=== PATIENT | female | born 1990 | race Two or more races ===

== ENCOUNTER 2021-07-20 14:28 | Emergency (ER) | payer MEDICAID ==
[~2021-07-20] VITALS: Ht 165.1 cm; Wt 99.8 kg
[2021-07-20 19:38] VITALS: BP 147/64
== END 2021-07-20 19:49 | disposition home or self-care (01) ==
LOC: ER 14:28
DX: S09.90XA Unspecified injury of head, initial encounter (principal); W22.8XXA Striking against or struck by other objects, initial encounter; Y93.89 Activity, other specified; Y92.89 Other specified places as the place of occurrence of the external cause; Y99.8 Other external cause status

== ENCOUNTER 2024-06-03 20:08 | Emergency (ER) | payer MEDICAID ==
[~2024-06-03] VITALS: Ht 162.6 cm; Wt 103.3 kg
[2024-06-03] MEDS ORDERED: IBU600T PO (22:23)
[2024-06-03] MEDS ORDERED: CYCL-838 PO (22:23)
[2024-06-03 23:10] VITALS: BP 115/62; TEMP 98.3
[2024-06-03 23:12] VITALS: PULSE 69; RESP 16; O2SAT 98
== END 2024-06-03 23:18 | disposition home or self-care (01) ==
LOC: ER 20:08
DX: R07.89 Other chest pain (principal); E66.9 Obesity, unspecified; Z68.39 Body mass index [BMI] 39.0-39.9, adult
CPT/HCPCS: 71045; 81025; 93005

== ENCOUNTER 2024-06-11 15:25 | Inpatient (IN) | payer MEDICAID ==
[~2024-06-11] VITALS: Ht 162.6 cm; Wt 105.6 kg
[~2024-06-11 15:25] MED LIST: CYCL-838 PO; IBU600T PO
[2024-06-11 16:11] LABS: Urine Bacteria None Seen /hpf (None Seen)
[2024-06-11 16:22] LABS: Urine Blood Negative /uL (Negative); Urine Clarity Clear (Clear); Urine Color Yellow (Yellow); Urine Mucus FEW (None Seen); Urine Protein, UAD Negative (Negative); Urine Specific Gravity 1.026 (1.001-1.035); Urine Urobilinogen Normal (Negative); Urine WBC <1 /hpf (0 - 5)
[2024-06-11] MEDS: ceFAZolin 1GM/50ML 50 ML IV ONE (17:08)
[2024-06-11 17:11] LABS: Basophils # (auto) 0.1 10 ^3/uL (0-0.2); Basophils % (auto) 0.7 % (0.0-2.0); Eosinophils # (auto) 0.1 10 ^3/uL (0-0.8); Eosinophils % (auto) 0.8 % (0.0-7.0); Hematocrit 40.7 % (36.0-46.0); Hemoglobin 14.2 g/dL (12.2-16.2); Lymphocytes # (auto) 2.3 10 ^3/uL (0.4-5.4); Mean Corpuscular Hemoglobin 29.5 pg (28.0-32.0); Mean Corpuscular Hgb Conc. 34.9 g/dL (32.0-36.0); Mean Corpuscular Volume 84.5 fL (80.0-100.0); Monocytes # (auto) 0.7 10 ^3/uL (0-1.3); Monocytes % (auto) 6.3 % (0.0-12.0); Neutrophils % (auto) 71.2 % (37.0-80.0); Nucleated Red Blood Cells % 0.1 %; Platelet Count (auto) 352 10^3/uL (140-450); Red Blood Cells 4.82 10^6/uL (4.0-5.20); Red Cell Distribution Width 13.5 % (11.8-14.3); White Blood Cell 11.2 10^3/uL (4.4-10.8)
[2024-06-11 17:33] LABS: Alanine Aminotransferase 22 U/L (7-40); Albumin 4.6 g/dL (3.2-4.8); Alkaline Phosphatase 67 U/L (46-116); Anion Gap 6 (5-15); Aspartate Aminotransferase 13 U/L (13-40); BUN/Creatinine Ratio 11.1 (10.0-20.0); Bilirubin, Total 0.5 mg/dL (0.2-1.0); Blood Urea Nitrogen 10 mg/dL (9-23); Carbon Dioxide 24 mmol/L (20-31); Chloride 106 mmol/L (98-107); Glucose 89 mg/dL (74-106); Potassium 3.6 mmol/L (3.5-5.1); Sodium 136 mmol/L (136-145); Total Protein 7.9 g/dL (5.7-8.2)
--- NOTE | 2024-06-11 18:23 | ED.PDOC ---
History of Present Illness(SKN HPI Comments Old female complaining of right ear pain. Patient states three weeks ago she hit her right ear cartilage pierced. States the piercing became infected. She went to the urgent care 20 days ago and received 1st course of antibiotics. States he was no significant improvement so she went back to the urgent care and received a 2nd course of antibiotics and additional shot of antibiotics. States at this point she has been on antibiotics for 20 days, she went back to the urgent care and they advised to come into the emergency department as they have given her any and all the antibiotics that she can be given outpatient. Patient has had no significant improvement. States her ear still swollen red and tender to the touch. Chief Complaint: Earache Time Seen by MD: 16:00 Primary Care Provider: WERNER History of Present Illness: Nurses Notes Allergies: Coded Allergies: NO KNOWN ALLERGIES (Unverified , 07/20/21) Home Meds Active Scripts Cyclobenzaprine Hcl (CYCLOBENZAPRINE HCL) 7.5 Mg Tab, 7.5 MG PO Q8HP PRN for 3 Days, #9 TAB Prov:LYNNE TURNER MD 06/03/24 Ibuprofen Micronized (MOTRIN TABLET) 600 Mg Tb, 600 MG PO TID PRN, #40 TAB *Black box warning-NSAIDS can increase risk of [place] & hypertension, GI irritation, ulceration, bleed, perferation. Do not use post cardiac surgery. Use short duration/lowest effective dose. Prov:LYNNE TURNER MD 06/03/24 Information Source: Patient Mode of Arrival: Ambulatory Past Medical History PAST MEDICAL HISTORY: Denies Surgical History: Denies all surgeries OIL PIPELINE DISPATCHER History: No Pertinent OIL PIPELINE DISPATCHER History Family History Family History: Reviewed,noncontributory to illness, No family hx of Cancer, No family hx of DM, No family hx of Heart isatu, No family hx of HTN, No family hx ofKidney isatu, No family hx of Liver isatu, No family hx of Lung isatu, No family hx of Stroke Social History Smoker: Non-Smoker Alcohol: Denies ETOH Use Drugs: Denies Drug Use Lives In: Home Constitutional: denies: chills, diaphoresis, fatigue, fever, malaise, sweats, weakness, others EENTM: reports: ear pain; denies: blurred vision, double vision, ear bleeding, ear discharge, ear drainage, ear ringing, eye pain, eye redness, hearing loss, mouth pain, mouth swelling, nasal discharge, nose bleeding, nose congestion, nose pain, photophobia, tearing, throat pain, throat swelling, voice changes, others Respiratory: denies: cough, hemoptysis, orthopnea, SOB at rest, shortness of breath, SOB with excertion, stridor, wheezing, others Cardiovascular: denies: chest pain, dizzy spells, diaphoresis, Dyspnea on exertion, edema, irregular heart beat, left arm pain, lightheadedness, palpitations, PND, syncope, others Gastrointestinal: denies: abdomen distended, abdominal pain, blood streaked bowels, constipated, diarrhea, dysphagia, difficulty swallowing, hematemesis, melena, nausea, poor appetite, poor fluid intake, rectal bleeding, rectal pain, vomiting, others Genitourinary: denies: abnormal vagina bleeding, burning, dyspareunia, dysuria, flank pain, frequency, hematuria, incontinence, pain, , vagina discharge, urgency, others Neurological: denies: dizziness, fainting, headache, left sided numbness, left sided weakness, numbness, paresthesia, pre-existing deficit, right sided numbness, right sided weakness, seizure, speech problems, tingling, tremors, weakness, others Musculoskeletal: denies: back pain, gout, joint pain, joint swelling, muscle pain, muscle stiffness, neck pain, others Integumetry: denies: bruises, change in color, change in hair/nails, dryness, laceration, lesions, lumps, rash, wounds, others Allergic/Immunocompromised: denies: Difficulty Healing, Frequent Infections, Hives, Itching, others Physical Exam General Appearance: No Apparent Distress, Normal HEENT: Normal ENT Inspection, Pharynx Normal, TMs Normal, Other (Erythematous swelling noted to the helix, antihelix, and jose of the right ear, scant discharge noted on the ear. Swelling does extend towards the canal. Canal is clear.) Neck: Full Range of Motion, Non-Tender, Normal, Normal Inspection Respiratory: Chest Non-Tender, Lungs Clear, No Accessory Muscle Use, No Respiratory Distress, Normal Breath Sounds Cardiovascular: No Edema, No JVD, No Murmur, No Gallop, Normal Peripheral Pulses, Regular Rate/Rhythm Breast Exam: Deferred Gastrointestinal: No Organomegaly, Non Tender, No Pulsatile Mass, Normal Bowel Sounds, Soft Genitalia: Deferred Pelvic: Deferred Rectal: Deferred Extremities: No calf tenderness, Normal capillary refill, Normal inspection, Normal range of motion, Non-tender, No pedal edema Musculoskeletal : Apperance: Normal Neurologic: Alert, fire suppression captain II-XII nml as Tested, No Motor Deficits, Normal Affect, Normal Mood, No Sensory Deficits Cerebellar Function: Normal Reflexes: Normal Skin: Dry, Normal Color, Warm Lymphatic: No Adenopathy Was a procedure done? Was a procedure done?: No Differential Diagnosis (INTG) Differential Diagnosis: Abrasion, Cellulitis, Contusion X-Ray, Labs, Meds, VS Vital Signs Date Time Temp Pulse Resp B/P (MAP) Pulse Ox O2 Delivery O2 Flow Rate FiO2 06/11/24 16:43 78 16 99 Room Air 06/11/24 16:43 99.1 78 16 131/74 (93) 99 99.1 06/11/24 15:40 98.5 93 18 131/76 (94) 100 Lab Test 06/11/24 16:46 06/11/24 15:56 Range/Units White Blood Count 11.2 H 4.4-10.8 10^3/uL Red Blood Count 4.82 4.0-5.20 10^6/uL Hemoglobin 14.2 12.2-16.2 g/dL Hematocrit 40.7 36.0-46.0 % Mean Corpuscular Volume 84.5 80.0-100.0 fL Mean Corpuscular Hemoglobin 29.5 28.0-32.0 pg Mean Corpuscular Hemoglobin Concent 34.9 32.0-36.0 g/dL Red Cell Distribution Width 13.5 11.8-14.3 % Platelet Count 352 140-450 10^3/uL Mean Platelet Volume 9.5 6.9-10.8 fL Neutrophils (%) (Auto) 71.2 37.0-80.0 % Lymphocytes (%) (Auto) 21.0 10.0-50.0 % Monocytes (%) (Auto) 6.3 0.0-12.0 % Eosinophils (%) (Auto) 0.8 0.0-7.0 % Basophils (%) (Auto) 0.7 0.0-2.0 % Neutrophils # (Auto) 8.0 1.6-8.6 10 ^3/uL Lymphocytes # (Auto) 2.3 0.4-5.4 10 ^3/uL Monocytes # (Auto) 0.7 0-1.3 10 ^3/uL Eosinophils # (Auto) 0.1 0-0.8 10 ^3/uL Basophils # (Auto) 0.1 0-0.2 10 ^3/uL Nucleated Red Blood Cells 0.1 % Sodium Level 136 136-145 mmol/L Potassium Level 3.6 3.5-5.1 mmol/L Chloride Level 106 98-107 mmol/L Carbon Dioxide Level 24 20-31 mmol/L Anion Gap 6 5-15 Blood Urea Nitrogen 10 9-23 mg/dL Creatinine 0.90 0.550-1.02 mg/dL Glomerular Filtration Rate Calc 86 >90 mL/min BUN/Creatinine Ratio 11.1 10.0-20.0 Serum Glucose 89 74-106 mg/dL Calcium Level 10.0 8.7-10.4 mg/dL Total Bilirubin 0.5 0.2-1.0 mg/dL Aspartate Amino Transferase (AST) 13 13-40 U/L Alanine Aminotransferase (ALT) 22 7-40 U/L Alkaline Phosphatase 67 46-116 U/L Total Protein 7.9 5.7-8.2 g/dL Albumin 4.6 3.2-4.8 g/dL Urine Color Yellow Yellow Urine Clarity Clear Clear Urine pH 5.0 5.0-9.0 Urine Specific [place] 1.026 1.001-1.035 Urine Protein Negative Negative Urine Ketones Negative Negative Urine Blood Negative Negative /uL Urine Nitrite Negative Negative Urine Bilirubin Negative Negative Urine Urobilinogen Normal Negative mg/dL Urine Leukocyte Esterase Negative Negative /uL Urine RBC 1 0 - 4 /hpf Urine WBC <1 0 - 5 /hpf Urine Squamous Epithelial Cells Few <5 /hpf Urine Bacteria None seen None Seen /hpf Urine Mucus Few None Seen Urine Glucose Normal Normal mg/dL Urine Test Negative Negative Current Medications Medications (Trade) Dose Ordered Sig/Pancho Route Start Time Stop Time Status Last Admin Cefazolin Sodium 50 ml @ 100 mls/hr ONCE ONCE IV 06/11/24 16:00 06/11/24 16:29 DC 06/11/24 17:08 X-Ray, Labs, Meds, VS Comment Patient will be admitted for cellulitis of the right ear Recommend IV antibiotics as patient was failed two courses of outpatient antibiotics Time of 1ST Reevaluation: 18:23 Reevaluation 1ST: Improved Patient Education/Counseling: Diagnosis, Treatment, Need For Follow Up Family Education/Counseling: Diagnosis Departure 1 Departure Time of Disposition: 18:22 Impression: Primary Impression: Complication of ear piercing Qualified Codes: S01.331D - Puncture wound without foreign body of right ear, subsequent encounter Additional Impression: Cellulitis Qualified Codes: L03.811 - Cellulitis of head [any part, except face] Disposition: 09 ADMITTED INPATIENT Condition: Fair Discharged With: Self Critical Care Note Critical Care Time?: No Stability Stability form required: No Heart Score Heart Score: Heart Score Response (Comments) Value History N/A 0 EKG N/A 0 Age N/A 0 Risk Factors N/A 0 Troponin N/A 0 Total 0 JERSEY BRAVOP Jun 11, 2024 18:23
[2024-06-11] MEDS ORDERED: DOCUSATE SOD 100 MG CAP PO PRN (19:00)
[2024-06-11] MEDS: SODIUM CHLORIDE 0.9% 1,000 ML IV SCH (19:00)
[2024-06-11] MEDS ORDERED: MORPHINE SULFATE INJ 2 MG/ml SYRG IV PRN (20:15)
[2024-06-11] MEDS ORDERED: NITROGLYCERIN 0.4 MG SL TAB SL PRN (20:15)
--- NOTE | 2024-06-11 20:28 | DVHHP2 ---
History of Present Illness Reason for Visit: Cellulitis of right ear History of Present Illness The patient is 33-year-old female who denies past medical history presented [facility] ED with complaint of right ear pain. Patient states three weeks ago she hit her right ear cartilage pierced and became infected. She initial went to the urgent care 20 days ago and received 1st course of antibiotics with no significant improvement so she went back to the urgent care and received a 2nd course of antibiotics and additional shot of antibiotics with no improvement. She went back to the urgent care and they advised to come to the emergency department for further evaluation. Patient was seen and evaluated in the ED, laboratory data shows WBC 11.2, platelets 352, sodium 136, potassium 3.6, BUN 10, creatinine 0.90, glucose 89. Patient was started on IV antibiotic regimen Ancef, please see medication orders section in the computer. On my assessment, patient denied chest pain, no headache, no dizziness, no shortness of breath, no nausea, no vomiting, no fever, no chills. Patient was admitted for further evaluation and medical management. Past Medical History Denies past medical history Past Surgical History Denies all surgeries Family History Reviewed, noncontributory to the management of this case. Past Social History The patient lives at home, denies smoking, alcohol or illicit drugs abuse. Review of Systems Constitutional: No: Fever, Chills, Sweats, Weakness, Malaise, Other Eyes: No: Pain, Vision change, Conjunctivae inflammation, Eyelid inflammation, Other, Redness ENT: Ear pain; No: Ear discharge, Nose pain, Nose discharge, Nose congestion, Mouth pain, Mouth swelling, Throat pain, Throat swelling, Other Respiratory: No: Cough, Dry, Shortness of breath, SOB with excertion, Wheezing, Hemoptysis, Pleuritic Pain, Sputum, Wheezing, Other Cardiovascular: No: Chest Pain, Palpitations, Orthopnea, Paroxysmal Noc. Dyspnea, Edema, Lt Headedness, Other Gastrointestinal: No: Nausea, Vomiting, Abdominal Pain, Diarrhea, Constipation, Melena, Hematochezia, Other Genitourinary: No Dysuria, No Frequency, No Incontinence, No Hematuria, No Retention, No Other Musculoskeletal: No: other, neck pain, shoulder pain, arm pain, back pain, hand pain, leg pain, foot pain Skin: No: Rash, Lesions, Jaundice, Bruising, Other Neurological: No: Weakness, Numbness, Incoordination, Change in speech, Confusion, Seizures, Other Allergies: Coded Allergies: NO KNOWN ALLERGIES (Unverified , 07/20/21) Medications Current Medications Medications Dose Ordered Sig/Pancho Route Start Time Stop Time Status Last Admin Dose Admin Cefazolin Sodium 50 ml @ 100 mls/hr Q8HR IV 06/11/24 22:00 Sodium Chloride 1,000 ml @ 60 mls/hr [id number] IV 06/11/24 19:00 Acetaminophen/ Hydrocodone Bitart 1 tab Q4HP PRN PO 06/11/24 19:00 Ondansetron HCl 4 mg Q4HP PRN IV 06/11/24 19:00 Docusate Sodium 100 mg BIDPRN PRN PO 06/11/24 19:00 Acetaminophen 650 mg Q6HP PRN PO 06/11/24 19:00 Morphine Sulfate 2 mg Q4HPRN PRN IV 06/11/24 19:00 Exam Vital Signs Vital Signs Date Time Temp Pulse Resp B/P (MAP) Pulse Ox O2 Delivery O2 Flow Rate FiO2 06/11/24 18:53 78 16 144/53 (83) 99 06/11/24 16:43 Room Air 06/11/24 16:43 99.1 99.1 General Appearance: Alert, Oriented X3, Cooperative, No acute distress HEENT: Atraumatic, PERRLA, EOMI, Mucous membr. moist/pink Respiratory: Clear to auscultation, Normal air movement Cardiovascular: Regular rate, Normal S1, Normal S2, No murmurs Abdominal: Normal bowel sounds, Soft, No tenderness, No hepatospenomegaly, No masses Extremities: No clubbing, No cyanosis, No edema, Normal pulses, No tenderness/swelling Skin: No rashes, No breakdown, No significant lesion Neuro: Normal gait, Normal speech, Strength at 5/5 X4 ext, Normal tone, Sensation intact, Cranial nerves 3-12 NL, Reflexes 2+ Psych/Mental Status: Mental status NL, Mood NL Labs/Xrays Labs Test 06/11/24 16:46 06/11/24 15:56 Range/Units White Blood Count 11.2 H 4.4-10.8 10^3/uL Red Blood Count 4.82 4.0-5.20 10^6/uL Hemoglobin 14.2 12.2-16.2 g/dL Hematocrit 40.7 36.0-46.0 % Mean Corpuscular Volume 84.5 80.0-100.0 fL Mean Corpuscular Hemoglobin 29.5 28.0-32.0 pg Mean Corpuscular Hemoglobin Concent 34.9 32.0-36.0 g/dL Red Cell Distribution Width 13.5 11.8-14.3 % Platelet Count 352 140-450 10^3/uL Mean Platelet Volume 9.5 6.9-10.8 fL Neutrophils (%) (Auto) 71.2 37.0-80.0 % Lymphocytes (%) (Auto) 21.0 10.0-50.0 % Monocytes (%) (Auto) 6.3 0.0-12.0 % Eosinophils (%) (Auto) 0.8 0.0-7.0 % Basophils (%) (Auto) 0.7 0.0-2.0 % Neutrophils # (Auto) 8.0 1.6-8.6 10 ^3/uL Lymphocytes # (Auto) 2.3 0.4-5.4 10 ^3/uL Monocytes # (Auto) 0.7 0-1.3 10 ^3/uL Eosinophils # (Auto) 0.1 0-0.8 10 ^3/uL Basophils # (Auto) 0.1 0-0.2 10 ^3/uL Nucleated Red Blood Cells 0.1 % Sodium Level 136 136-145 mmol/L Potassium Level 3.6 3.5-5.1 mmol/L Chloride Level 106 98-107 mmol/L Carbon Dioxide Level 24 20-31 mmol/L Anion Gap 6 5-15 Blood Urea Nitrogen 10 9-23 mg/dL Creatinine 0.90 0.550-1.02 mg/dL Glomerular Filtration Rate Calc 86 >90 mL/min BUN/Creatinine Ratio 11.1 10.0-20.0 Serum Glucose 89 74-106 mg/dL Calcium Level 10.0 8.7-10.4 mg/dL Total Bilirubin 0.5 0.2-1.0 mg/dL Aspartate Amino Transferase (AST) 13 13-40 U/L Alanine Aminotransferase (ALT) 22 7-40 U/L Alkaline Phosphatase 67 46-116 U/L Total Protein 7.9 5.7-8.2 g/dL Albumin 4.6 3.2-4.8 g/dL Urine Color Yellow Yellow Urine Clarity Clear Clear Urine pH 5.0 5.0-9.0 Urine Specific [place] 1.026 1.001-1.035 Urine Protein Negative Negative Urine Ketones Negative Negative Urine Blood Negative Negative /uL Urine Nitrite Negative Negative Urine Bilirubin Negative Negative Urine Urobilinogen Normal Negative mg/dL Urine Leukocyte Esterase Negative Negative /uL Urine RBC 1 0 - 4 /hpf Urine WBC <1 0 - 5 /hpf Urine Squamous Epithelial Cells Few <5 /hpf Urine Bacteria None seen None Seen /hpf Urine Mucus Few None Seen Urine Glucose Normal Normal mg/dL Urine Test Negative Negative Assessment/Plan Assessment/Plan Complication of ear piercing Cellulitis of right ear Cellulitis of head [any part, except face] Puncture wound without foreign body of right ear, subsequent encounter Plan 1. Admit to Med-Surg unit 2. Breathing treatment 3. Pain control management 4. IV antibiotic management 5. Management of fluids and electrolytes 6. Consultation for hospitalist/wound care 7. Diagnostic test-x-ray 8. DVT prophylaxis on SCDs 9. Repeat labs CBC, CMP in a.m. 10. Home medication reviewed and reconciled 11. Continue with current medical management 12. Treatment plan discussed with patient and RN. Patient verbalized understanding. Plan discussed with: Patient, Other (RN) My Orders Orders - FREDA RIDER DNP Procedure Category Date Status Time Cefazolin 1gm/50ml PHA 06/11/24 In Process (Ancef) 22:00 Allergies NICOLE 06/11/24 In Process 18:51 Code Status CODE 06/11/24 Transmitted 18:51 2 Gm Sodium Diet DIET 06/12/24 Transmitted Breakfast Sodium Chloride 0.9% PHA 06/11/24 In Process 19:00 Oxygen Per Hour RT 06/11/24 Transmitted 18:51 Hydrocodone-Acet PHA 06/11/24 In Process 5/325mg Tab ([place] 19:00 Ondansetron Hcl PHA 06/11/24 In Process (Zofran) 19:00 Docusate Sodium PHA 06/11/24 In Process Capsule (Colace 19:00 Complete Blood Count LAB 06/12/24 Verified 04:00 Comprehensive LAB 06/12/24 Verified Metabolic Panel 04:00 Condition: Serious NICOLE 06/11/24 In Process 18:51 Acetaminophen Tablet PHA 06/11/24 In Process (Tylenol Tablet) 19:00 Bedrest With Bathroom [facility] 06/11/24 In Process Privileg 18:51 Morphine Sulfate [facility] 06/11/24 In Process Injection 19:00 Sequential [facility] 06/11/24 In Process Compression Device Admit ADMIT 06/11/24 Verified 20:10 Nitroglycerin [facility] 06/11/24 Verified Sublingual (Ntrostat 20:15 Morphine Sulfate [facility] 06/11/24 Verified Injection 20:15 Notify Of Changes [facility] 06/11/24 Verified From Base 20:10 Block Engraver For [facility] 06/11/24 Verified 24 Hours 20:10 Emergency Dysrhythmia [facility] 06/11/24 Verified Protocol 20:10 Rhythm Strips Once [facility] 06/11/24 Verified Every Shift 20:10 Oxygen By Nasal 06/11/24 Verified Cannula 20:10 Problem List: (1) Cellulitis of right ear (2) Complication of ear piercing (3) Cellulitis of head [any part, except face] (4) Puncture wound without foreign body of right ear, subsequent encounter Date of Service: Jun 11, 2024 Billing Provider: FREDA RIDER DNP Common Visit Codes: [id number] INP/OBS CARE (HIGH) FREDA RIDER DNP Jun 11, 2024 20:28
[2024-06-11] MEDS: ONDANSETRON HCL 4 MG/2 ML VIAL IV PRN (20:44)
[2024-06-11] MEDS: HYDROcodone-ACET 5/325MG TAB PO PRN (20:44)
[2024-06-11 21:30] VITALS: BP 150/75; PULSE 84; RESP 17; TEMP 98.2; O2SAT 97
[2024-06-11 21:41] VITALS: PULSE 84; RESP 18; O2SAT 97
[2024-06-11 21:42] VITALS: BP 150/75; PULSE 82; TEMP 98.2; O2SAT 97
[2024-06-11] MEDS: ceFAZolin 1GM/50ML 50 ML IV SCH (22:12)
[2024-06-11] MEDS ORDERED: LISI40TA16 PO (22:13)
[2024-06-12] VITALS (8 sets, daily range): BP systolic 109–136; BP diastolic 54–70; PULSE 69–84; RESP 18–19; TEMP 98.1–98.7; O2SAT 97–100
[2024-06-12] MEDS: MORPHINE SULFATE INJ 2 MG/ml SYRG IV PRN (00:58)
[2024-06-12 07:10] LABS: Basophils # (auto) 0.1 10 ^3/uL (0-0.2); Basophils % (auto) 0.7 % (0.0-2.0); Eosinophils # (auto) 0.1 10 ^3/uL (0-0.8); Eosinophils % (auto) 1.2 % (0.0-7.0); Hematocrit 39.7 % (36.0-46.0); Hemoglobin 13.1 g/dL (12.2-16.2); Lymphocytes # (auto) 2.9 10 ^3/uL (0.4-5.4); Lymphocytes % (auto) 25.7 % (10.0-50.0); Mean Corpuscular Hemoglobin 28.6 pg (28.0-32.0); Mean Corpuscular Hgb Conc. 33.1 g/dL (32.0-36.0); Mean Corpuscular Volume 86.4 fL (80.0-100.0); Monocytes # (auto) 0.9 10 ^3/uL (0-1.3); Monocytes % (auto) 7.6 % (0.0-12.0); Neutrophils # (auto) 7.3 10 ^3/uL (1.6-8.6); Neutrophils % (auto) 64.8 % (37.0-80.0); Platelet Count (auto) 336 10^3/uL (140-450); Red Blood Cells 4.59 10^6/uL (4.0-5.20); Red Cell Distribution Width 13.9 % (11.8-14.3); White Blood Cell 11.3 10^3/uL (4.4-10.8)
[2024-06-12 07:31] LABS: Alanine Aminotransferase 18 U/L (7-40); Alkaline Phosphatase 62 U/L (46-116); Anion Gap 8 (5-15); BUN/Creatinine Ratio 9.6 (10.0-20.0); Blood Urea Nitrogen 8 mg/dL (9-23); Calcium 9.8 mg/dL (8.7-10.4); Carbon Dioxide 25 mmol/L (20-31); Chloride 106 mmol/L (98-107); Glucose 91 mg/dL (74-106); Potassium 3.8 mmol/L (3.5-5.1); Sodium 139 mmol/L (136-145)
[2024-06-12 07:32] LABS: Albumin 4.1 g/dL (3.2-4.8); Aspartate Aminotransferase 8 U/L (13-40)
[2024-06-12 07:33] LABS: Bilirubin, Total 0.8 mg/dL (0.2-1.0); Total Protein 7.2 g/dL (5.7-8.2)
[2024-06-12] MEDS: INFLUENZA TRIVALENT 2024-2025 0.5 ML INJ IM ONE (10:00)
--- NOTE | 2024-06-12 12:26 | DVHPN2 ---
Subjective 33-year-old female with no significant past medical history admitted for right outer ear abscess. Patient had a piercing 1 month ago, developed swelling and draining pus, went to urgent Care, received in total clindamycin, cefdinir, penicillin and unknown 1 shot of IM medication. Patient is seen by me during rounds today Does not look like she has in her infection, however slight tenderness post and preauricular possible lymphadenopathy, we will get CT scan to rule out mastoiditis, otoscopic evaluation slight swelling in the inner ear, no erythema, clear tympanic membrane. We will consult surgery for possible outer ear I&D Reviewed: Care Plan, H&P, Labs, Medications, Previous Orders, Radiology Changes from previous H/P or p: No Changes Eyes: No Pain, No Vision change, No Conjunctivae inflammation, No Eyelid inflammation, No Other, No Redness ENT: Ear pain; No Ear discharge, No Nose pain, No Nose discharge, No Nose congestion, No Mouth pain, No Mouth swelling, No Throat pain, No Throat swelling, No Other Cardiovascular: No Chest Pain, No Palpitations, No Orthopnea, No Paroxysmal Noc. Dyspnea, No Edema, No Lt Headedness, No Other Respiratory: No Cough, No Dry, No Shortness of breath, No SOB with excertion, No Wheezing, No Hemoptysis, No Pleuritic Pain, No Sputum, No Other Gastrointestinal: No Nausea, No Vomiting, No Abdominal Pain, No Diarrhea, No Constipation, No Melena, No Hematochezia, No Other Genitourinary: No Dysuria, No Frequency, No Incontinence, No Hematuria, No Retention, No Other Musculoskeletal: No other, No neck pain, No shoulder pain, No arm pain, No back pain, No hand pain, No leg pain, No foot pain Skin: No Rash, No Lesions, No Jaundice, No Bruising, No Other Objective Vitals Vital Signs Date Time Temp Pulse Resp B/P (MAP) Pulse Ox O2 Delivery O2 Flow Rate FiO2 06/12/24 09:00 98.1 82 18 109/54 (72) 99 98.1 06/11/24 21:41 Room Air* 0 21 Intake/Output Intake and Output 06/12/24 07:00 Intake Total 1050 ml Balance 1050 ml Intake Oral 900 ml IV Total 150 ml # Voids 2 Exam Alert, oriented x3 PERRLA No JVD Right outer ear, swollen, erythematous, fluctuating mass on the upper inner pinna, warmth to touch Ear canal slight swelling, trace blood seen, trace ear wax, no erythema Clear tympanic membrane Slight muffled hearing on right ear compared to left Clear breath sounds bilaterally S1-S2 regular rate and rhythm no murmur Abdomen soft nontender, no hepatomegaly Equal strength bilaterally on upper and lower extremities No lower extremity edema Medications Current Medications Medications Dose Ordered Sig/Pancho Route Start Time Stop Time Status Last Admin Dose Admin Cefazolin Sodium 50 ml @ 100 mls/hr Q8HR IV 06/11/24 22:00 06/12/24 05:26 100 MLS/HR Sodium Chloride 1,000 ml @ 60 mls/hr [id number] IV 06/11/24 19:00 06/11/24 22:08 60 MLS/HR Acetaminophen/ Hydrocodone Bitart 1 tab Q4HP PRN PO 06/11/24 19:00 06/12/24 05:25 1 TAB Ondansetron HCl 4 mg Q4HP PRN IV 06/11/24 19:00 06/11/24 20:44 4 MG Docusate Sodium 100 mg BIDPRN PRN PO 06/11/24 19:00 Acetaminophen 650 mg Q6HP PRN PO 06/11/24 19:00 Morphine Sulfate 2 mg Q4HPRN PRN IV 06/11/24 19:00 06/12/24 00:58 2 MG Nitroglycerin 0.4 mg Q5MINP PRN SL 06/11/24 20:15 Morphine Sulfate 2 mg Q30M PRN IV 06/11/24 20:15 Laboratory Results Laboratory Tests 06/12/24 06:00 Chemistry Test 06/11/24 16:46 06/12/24 06:00 Albumin 4.6 g/dL (3.2-4.8) 4.1 g/dL (3.2-4.8) Calcium Level 10.0 mg/dL (8.7-10.4) 9.8 mg/dL (8.7-10.4) Total Protein 7.9 g/dL (5.7-8.2) 7.2 g/dL (5.7-8.2) LFT Test 06/11/24 16:46 06/12/24 06:00 Alanine Aminotransferase (ALT) 22 U/L (7-40) 18 U/L (7-40) Alkaline Phosphatase 67 U/L (46-116) 62 U/L (46-116) Aspartate Amino Transferase (AST) 13 U/L (13-40) 8 U/L (13-40) L Total Bilirubin 0.5 mg/dL (0.2-1.0) 0.8 mg/dL (0.2-1.0) Urinalysis Test 06/11/24 15:56 Urine Color Yellow (Yellow) Urine Clarity Clear (Clear) Urine pH 5.0 (5.0-9.0) Urine Specific [place] 1.026 (1.001-1.035) Urine Protein Negative (Negative) Urine Ketones Negative (Negative) Urine Blood Negative /uL (Negative) Urine Nitrite Negative (Negative) Urine Bilirubin Negative (Negative) Urine Urobilinogen Normal mg/dL (Negative) Urine Leukocyte Esterase Negative /uL (Negative) Urine RBC 1 /hpf (0 - 4) Urine WBC <1 /hpf (0 - 5) Urine Squamous Epithelial Cells Few /hpf (<5) Urine Bacteria None seen /hpf (None Seen) Urine Mucus Few (None Seen) Urine Glucose Normal mg/dL (Normal) Urine Test Negative (Negative) Labs and/or images reviewed: Labs reviewed by me, Image(s) reviewed by me Assessment/Plan Assessment/Plan Right outer ear cellulitis Rule out abscess Rule out mastoiditis Switch antibiotic to clindamycin and ciprofloxacin to cover for Pseudomonas and MRSA Pain management with Tylenol Toradol Consult surgery for possible outer ear I&D CT to rule out mastoiditis Diet regular DVT prophylaxis ambulatory Plan discussed with: Patient My Orders Orders - STANISLAV ROSAS MD Procedure Category Date Status Time Head Contrast Only CT 06/12/24 Logged 12:14 Levofloxacin Levaquin PHA 06/13/24 Verified 10:00 Clindamycin Ivpb PHA 06/12/24 Verified Cleocin 14:00 * Surgical Consult CONS 06/12/24 Verified Date of Service: Jun 12, 2024 Billing Provider: STANISLAV ROSAS MD Common Visit Codes: [id number] INP/OBS CARE(HIGH) STANISLAV ROSAS MD Jun 12, 2024 12:26
[2024-06-12] MEDS ORDERED: levoFLOXacin 250MG 50 ML IV SCH (13:00)
[2024-06-12] MEDS ORDERED: VANCOMYCIN PER PHARMACY 0 MG IV SCH (14:00)
[2024-06-12] MEDS ORDERED: CLINDAMYCIN 600MG IV 50 ML IV SCH (14:00)
[2024-06-12] MEDS: VANCOMYCIN 1.5GM/300ML 300 ML IV ONE (16:23)
[2024-06-12] MEDS: ACETAMINOPHEN 325 MG TAB PO SCH (16:24)
[2024-06-12] MEDS: KETOROLAC TROMETH 30 MG/ML 1ML VIAL IV SCH (16:24)
--- NOTE | 2024-06-12 16:24 | DVH ---
Procedure: CT HEAD CONTRAST ONLY Study Date and Requested Time: 06/12/2024 03:45 PM History: r/o mastoiditis and asbcess yusuf R ear Comparison: None Dose: CTDI: 63.18 mGy DLP: 1392.18 mGycm Technique: Multiplanar images obtained through the brain with intravenous contrast. Findings: Normal brain volume and formation. No hemorrhages, masses, mass effect, midline shift, herniation or cytotoxic edema following a large v ascular territory. No intra-axial or extra-axial fluid collections. No evidence of hydrocephalus. The basal cisterns are patent. The pituitary gland, sella and parasellar regions are unremarkable. The cerebellar tonsils are in nor mal position. The cerebellum is unremarkable. The orbits and globes are unremarkable. Bubbly secretion within left posterior ethmoid air cell. Oth erwise, the paranasal sinuses and mastoids are clear. There are no worrisome calvarial lesions. There is soft tissue edema of the right external ear with questionable 1 x 0.6 cm abscess and more inferio r 0.7 cm possible abscess. Slightly prominent reactive lymph nodes are noted within the right parotid gland. No abnormal intracranial enhancement. Impression: No evidence of acute intracranial abnormality. No abnormal intracranial enhancement. No evidence of mastoiditis. Asymmetric soft tissue edema of the right external ear with questionable 1 x 0.6 cm abscess and more inferior 0.7 cm possible abscess.
[2024-06-12] MEDS: IOHEXOL 300 MG/ML 100ML BOTTLE IJ ONE (16:42)
[2024-06-12] MEDS ORDERED: PIPERACILLIN-TAZOB 3.375GM 100 ML IV SCH (18:00)
[2024-06-12] MEDS: PIPERACILLIN-TAZOB 3.375GM 100 ML IV SCH (21:21)
[2024-06-13] VITALS (7 sets, daily range): BP systolic 115–134; BP diastolic 53–77; PULSE 52–72; RESP 16–18; TEMP 98.2–99.4; O2SAT 97–98
[2024-06-13] MEDS: VANCOMYCIN 1.5GM/300ML 300 ML IV SCH (04:15)
[2024-06-13 07:07] LABS: Basophils # (auto) 0.1 10 ^3/uL (0-0.2); Basophils % (auto) 1.1 % (0.0-2.0); Eosinophils # (auto) 0.2 10 ^3/uL (0-0.8); Eosinophils % (auto) 1.8 % (0.0-7.0); Hematocrit 39.9 % (36.0-46.0); Hemoglobin 13.1 g/dL (12.2-16.2); Lymphocytes % (auto) 26.2 % (10.0-50.0); Mean Corpuscular Hemoglobin 28.4 pg (28.0-32.0); Mean Corpuscular Hgb Conc. 32.8 g/dL (32.0-36.0); Mean Corpuscular Volume 86.6 fL (80.0-100.0); Monocytes # (auto) 0.9 10 ^3/uL (0-1.3); Monocytes % (auto) 8.3 % (0.0-12.0); Neutrophils # (auto) 7.1 10 ^3/uL (1.6-8.6); Neutrophils % (auto) 62.6 % (37.0-80.0); Platelet Count (auto) 325 10^3/uL (140-450); Red Blood Cells 4.61 10^6/uL (4.0-5.20); Red Cell Distribution Width 13.7 % (11.8-14.3); White Blood Cell 11.3 10^3/uL (4.4-10.8)
[2024-06-13] MEDS ORDERED: levoFLOXacin 750MG 150 ML IV SCH (10:00)
--- NOTE | 2024-06-13 15:59 | DVHPN2 ---
Subjective 33-year-old female with no significant past medical history admitted for right outer ear abscess. Patient had a piercing 1 month ago, developed swelling and draining pus, went to urgent Care, received in total clindamycin, cefdinir, penicillin and unknown 1 shot of IM medication. Patient is seen by me during rounds today Pending surgery consult, patient on vanc and Zosyn, improving, drainage seen from ear, swelling improved, pain improved we will continue IV antibiotics for now. Discussed with patient if unable to get treatment from surgery, we will discharge her with antibiotics and for her to follow up with ENT. Reviewed: Care Plan, H&P, Labs, Medications, Previous Orders, Radiology Changes from previous H/P or p: No Changes Eyes: No Pain, No Vision change, No Conjunctivae inflammation, No Eyelid inflammation, No Other, No Redness ENT: Ear pain; No Ear discharge, No Nose pain, No Nose discharge, No Nose congestion, No Mouth pain, No Mouth swelling, No Throat pain, No Throat swelling, No Other Cardiovascular: No Chest Pain, No Palpitations, No Orthopnea, No Paroxysmal Noc. Dyspnea, No Edema, No Lt Headedness, No Other Respiratory: No Cough, No Dry, No Shortness of breath, No SOB with excertion, No Wheezing, No Hemoptysis, No Pleuritic Pain, No Sputum, No Other Gastrointestinal: No Nausea, No Vomiting, No Abdominal Pain, No Diarrhea, No Constipation, No Melena, No Hematochezia, No Other Genitourinary: No Dysuria, No Frequency, No Incontinence, No Hematuria, No Retention, No Other Musculoskeletal: No other, No neck pain, No shoulder pain, No arm pain, No back pain, No hand pain, No leg pain, No foot pain Skin: No Rash, No Lesions, No Jaundice, No Bruising, No Other Objective Vitals Vital Signs Date Time Temp Pulse Resp B/P (MAP) Pulse Ox O2 Delivery O2 Flow Rate FiO2 06/13/24 13:18 98.2 52 17 115/70 (85) 98 98.2 06/13/24 08:15 Room Air* 0 21 Intake/Output Intake and Output 06/13/24 06:59 Intake Total 1650 ml Output Total 350 ml Balance 1300 ml Intake Oral 1250 ml IV Total 400 ml Output Urine Total 350 ml # Voids 2 Exam Alert, oriented x3 PERRLA No JVD Right outer ear, swollen, erythematous, fluctuating mass on the upper inner pinna, warmth to touch Ear canal slight swelling, trace blood seen, trace ear wax, no erythema Clear tympanic membrane Slight muffled hearing on right ear compared to left Clear breath sounds bilaterally S1-S2 regular rate and rhythm no murmur Abdomen soft nontender, no hepatomegaly Equal strength bilaterally on upper and lower extremities No lower extremity edema Medications Current Medications Medications Dose Ordered Sig/Pancho Route Start Time Stop Time Status Last Admin Dose Admin Sodium Chloride 1,000 ml @ 60 mls/hr [id number] IV 06/11/24 19:00 06/12/24 21:14 60 MLS/HR Acetaminophen 650 mg Q6HP PRN PO 06/11/24 19:00 Levofloxacin/ Dextrose 150 ml @ 100 mls/hr DAILY IV 06/13/24 10:00 Cancel Vancomycin HCl 0 ml @ 0 mls/hr UD IV 06/12/24 14:00 Acetaminophen 650 mg Q8HR PO 06/12/24 14:00 06/13/24 13:33 650 MG Ketorolac Tromethamine 30 mg Q12HR IV 06/12/24 14:00 06/15/24 13:59 06/13/24 10:53 30 MG Vancomycin HCl 300 ml @ 200 mls/hr Q12H IV 06/13/24 04:00 06/13/24 15:15 200 MLS/HR Piperacillin Sod/ Tazobactam Sod 100 ml @ 25 mls/hr Q6H IV 06/12/24 21:07 06/13/24 11:04 25 MLS/HR Laboratory Results Laboratory Tests 06/12/24 06:00 06/13/24 06:24 Urinalysis Test 06/11/24 15:56 Urine Color Yellow (Yellow) Urine Clarity Clear (Clear) Urine pH 5.0 (5.0-9.0) Urine Specific [place] 1.026 (1.001-1.035) Urine Protein Negative (Negative) Urine Ketones Negative (Negative) Urine Blood Negative /uL (Negative) Urine Nitrite Negative (Negative) Urine Bilirubin Negative (Negative) Urine Urobilinogen Normal mg/dL (Negative) Urine Leukocyte Esterase Negative /uL (Negative) Urine RBC 1 /hpf (0 - 4) Urine WBC <1 /hpf (0 - 5) Urine Squamous Epithelial Cells Few /hpf (<5) Urine Bacteria None seen /hpf (None Seen) Urine Mucus Few (None Seen) Urine Glucose Normal mg/dL (Normal) Urine Test Negative (Negative) Labs and/or images reviewed: Labs reviewed by me, Image(s) reviewed by me Assessment/Plan Assessment/Plan Right outer ear cellulitis Rule out abscess Ruled out mastoiditis Continue with vanc and Zosyn to cover for Pseudomonas and MRSA Pain management with Tylenol Toradol Consult surgery for possible outer ear I&D CT to rule out mastoiditis Diet regular DVT prophylaxis ambulatory Plan discussed with: Patient My Orders Orders - STANISLAV ROSAS MD Procedure Category Date Status Time Vancomycin 1.5gm/300ml PHA 06/13/24 In Process 04:00 Vancomycin,Trough LAB 06/14/24 Verified 03:00 Piperacillin-Tazob PHA 06/12/24 In Process 3.375gm (Zosyn 3.375g 21:07 Date of Service: Jun 13, 2024 Billing Provider: STANISLAV ROSAS MD Common Visit Codes: [id number] INP/OBS CARE(HIGH) STANISLAV ROSAS MD Jun 13, 2024 15:59
[2024-06-14 01:00] VITALS: BP 137/80; PULSE 66; RESP 18; TEMP 99.3; O2SAT 99
[2024-06-14 05:00] VITALS: BP 135/65; PULSE 59; RESP 16; TEMP 98.8; O2SAT 99
[2024-06-14] MEDS: ACETAMINOPHEN 325 MG TAB PO PRN (08:06)
[2024-06-14 09:00] VITALS: BP 129/66; PULSE 64; RESP 18; TEMP 97.7; O2SAT 99
[2024-06-14 13:00] VITALS: BP 123/64; PULSE 63; RESP 18; TEMP 98.2; O2SAT 99
[2024-06-14] MEDS ORDERED: IBU600T PO (13:11)
[2024-06-14] MEDS ORDERED: LEVO750T40 PO (13:11)
[2024-06-14] MEDS ORDERED: CLIN-203 PO (13:11)
[2024-06-14] MEDS ORDERED: ACET-1079 PO (13:11)
--- NOTE | 2024-06-14 20:15 | DVHDS2 ---
Discharge Summary Date of Admission Jun 11, 2024 at 20:10 Date of Discharge: Jun 14, 2024 Labs/Diagnostic Data: Laboratory Results Test 06/14/24 03:40 06/13/24 06:24 06/12/24 06:00 06/11/24 15:56 Vancomycin Level Trough 9.9 ug/mL (5-10) White Blood Count 11.3 10^3/uL (4.4-10.8) Red Blood Count 4.61 10^6/uL (4.0-5.20) Hemoglobin 13.1 g/dL (12.2-16.2) Hematocrit 39.9 % (36.0-46.0) Mean Corpuscular Volume 86.6 fL (80.0-100.0) Mean Corpuscular Hemoglobin 28.4 pg (28.0-32.0) Mean Corpuscular Hemoglobin Concent 32.8 g/dL (32.0-36.0) Red Cell Distribution Width 13.7 % (11.8-14.3) Platelet Count 325 10^3/uL (140-450) Mean Platelet Volume 10.1 fL (6.9-10.8) Neutrophils (%) (Auto) 62.6 % (37.0-80.0) Lymphocytes (%) (Auto) 26.2 % (10.0-50.0) Monocytes (%) (Auto) 8.3 % (0.0-12.0) Eosinophils (%) (Auto) 1.8 % (0.0-7.0) Basophils (%) (Auto) 1.1 % (0.0-2.0) Neutrophils # (Auto) 7.1 10 ^3/uL (1.6-8.6) Lymphocytes # (Auto) 3.0 10 ^3/uL (0.4-5.4) Monocytes # (Auto) 0.9 10 ^3/uL (0-1.3) Eosinophils # (Auto) 0.2 10 ^3/uL (0-0.8) Basophils # (Auto) 0.1 10 ^3/uL (0-0.2) Nucleated Red Blood Cells 0.0 % Creatinine 0.94 mg/dL (0.550-1.02) Glomerular Filtration Rate Calc 82 mL/min (>90) Sodium Level 139 mmol/L (136-145) Potassium Level 3.8 mmol/L (3.5-5.1) Chloride Level 106 mmol/L (98-107) Carbon Dioxide Level 25 mmol/L (20-31) Anion Gap 8 (5-15) Blood Urea Nitrogen 8 mg/dL (9-23) BUN/Creatinine Ratio 9.6 (10.0-20.0) Serum Glucose 91 mg/dL (74-106) Calcium Level 9.8 mg/dL (8.7-10.4) Total Bilirubin 0.8 mg/dL (0.2-1.0) Aspartate Amino Transferase (AST) 8 U/L (13-40) Alanine Aminotransferase (ALT) 18 U/L (7-40) Alkaline Phosphatase 62 U/L (46-116) Total Protein 7.2 g/dL (5.7-8.2) Albumin 4.1 g/dL (3.2-4.8) Urine Color Yellow (Yellow) Urine Clarity Clear (Clear) Urine pH 5.0 (5.0-9.0) Urine Specific [place] 1.026 (1.001-1.035) Urine Protein Negative (Negative) Urine Ketones Negative (Negative) Urine Blood Negative /uL (Negative) Urine Nitrite Negative (Negative) Urine Bilirubin Negative (Negative) Urine Urobilinogen Normal mg/dL (Negative) Urine Leukocyte Esterase Negative /uL (Negative) Urine RBC 1 /hpf (0 - 4) Urine WBC <1 /hpf (0 - 5) Urine Squamous Epithelial Cells Few /hpf (<5) Urine Bacteria None seen /hpf (None Seen) Urine Mucus Few (None Seen) Urine Glucose Normal mg/dL (Normal) Urine Test Negative (Negative) Other Laboratory Tests 06/13/24 06:24 06/12/24 06:00 Brief Hx & Hospital Course: 33-year-old female with piercing related ear infection, seen in urgent Care before was given antibiotics including clindamycin, cephalosporins admitted for worsening of the ear pain. CT showed possible abscess. Patient will need ENT for I and D, however with starting vanc and Zosyn, significant improvement in ears. Patient was discharged on ciprofloxacin and clindamycin, to follow up with ENT for further debridement if needed as outpatient Condition at Discharge: Good Final Diagnosis/Problems List outer ear infection, suspect pseudomonas, cannot r/o mrsa Discharge Disposition: Home Discharge Instruct/Medications Diet: Regular Activity: No Restrictions, As Tolerated Follow Up/Referral: follow up with discharge clinic on monday 06/18 your ENT referral will be given there Medications: take levofloxacin and clindamycin for 10 days 38 Discharge Statement: "Patient was advised to return to the ER or call 911 if any headaches, dizziness, shortness of breath, chest pain, abdominal pain, bleeding, fevers, or worsening of medical condition. Patient was counseled about treatment plan, medications, possible side effects, patientverbalized understanding. All questions were answered to the best of my ability. This discharge took greater then 30 minutes in planning, reviewing documentation, counseling the patient, and discussing with other team members." ASSESSMENT ASSESSMENT Assessment Right outer ear cellulitis, likely Pseudomonas Can not rule out MRSA possible abscess Ruled out mastoiditis Date of Service: Jun 14, 2024 Billing Provider: STANISLAV ROSAS MD Common Visit Codes: [id number]-ORS/OBS DISCH DAY >30min STANISLAV ROSAS MD Jun 14, 2024 20:15
== END 2024-06-14 16:28 | disposition home or self-care (01) | DRG 115 ==
LOC: ER 15:25 → OVERFLOW 20:10 → CENTRAL 21:34
PROVIDERS: ADMIT Nurse Practitioner Family; ATTEND Student in an Organized Health Care Education/Training Program
DX: H60.11 Cellulitis of right external ear (principal); L02.818 Cutaneous abscess of other sites; L03.811 Cellulitis of head [any part, except face]; S01.33 Puncture wound without foreign body of ear; X58.XXXD Exposure to other specified factors, subsequent encounter; Z79.899 Other long term (current) drug therapy
CPT/HCPCS: 36415; 70460; 80053; 80202; 81001; 81025; 82565; 85025; G0378; J1885; J2405; J2543

== ENCOUNTER 2025-05-25 12:37 | Emergency (ER) | payer MEDICAID ==
[~2025-05-25] VITALS: Ht 162.6 cm; Wt 105.5 kg
[~2025-05-25 12:37] MED LIST changes: +ACET-1079 PO; +CLIN-203 PO; -CYCL-838 PO; +LEVO750T40 PO; +LISI40TA16 PO
[2025-05-25 13:23] LABS: Hematocrit 46.0 % (36.0-46.0); Hemoglobin 15.6 g/dL (12.2-16.2); Mean Corpuscular Hemoglobin 29.1 pg (28.0-32.0); Mean Corpuscular Volume 85.8 fL (80.0-100.0); Nucleated Red Blood Cells % 0.0 %
[2025-05-25 13:35] LABS: Chloride 105 mmol/L (98-107); Potassium 3.9 mmol/L (3.5-5.1); Sodium 138 mmol/L (136-145)
[2025-05-25 13:36] LABS: Anion Gap 7 (5-15); Calcium 9.1 mg/dL (8.7-10.4); Carbon Dioxide 26 mmol/L (20-31)
[2025-05-25 13:41] LABS: BUN/Creatinine Ratio 8.7 (10.0-20.0); Blood Urea Nitrogen 9 mg/dL (9-23); Glucose 114 mg/dL (74-106)
--- NOTE | 2025-05-25 14:23 | ED.PDOC ---
History of Present Illness HPI Comments 34 y/o obese F presents with c/c of RUQ and RLQ abdominal pain. Patient endorses on having pain since 05/20/25 but states on it, suddenly, worsening, this morning. Significant history of gallbladder-related issues with similar pain in the past 2-3 years ago but states on pain ceasing after modifying diet to exclude greasy food. Denial of any nausea, vomiting, or further associated symptoms. Chief Complaint: Abdominal Pain Time Seen by MD: 14:10 Primary Care Provider: WERNER Reviewed Notes: Nurses Notes, Medications, Allergies Allergies: Coded Allergies: NO KNOWN ALLERGIES (Unverified , 07/20/21) Home Meds Active Scripts Acetaminophen (Tylenol) 325 Mg Tb, 325 MG PO TID for 5 Days, #15 TAB Prov:STANISLAV ROSAS MD 06/14/24 Ibuprofen Micronized (MOTRIN TABLET) 600 Mg Tb, 600 MG PO TID PRN for 10 Days, #30 TAB *Black box warning-NSAIDS can increase risk of [place] & hypertension, GI irritation, ulceration, bleed, perferation. Do not use post cardiac surgery. Use short duration/lowest effective dose. Prov:STANISLAV ROSAS MD 06/14/24 Clindamycin HCl (Clindamycin Hydrochloride) 300 Mg Cap, 300 MG PO BID for 10 Days, #20 CAP Prov:STANISLAV ROSAS MD 06/14/24 Levofloxacin Hemihydrate (LEVOFLOXACIN) 750 Mg Tab, 1 TAB PO DAILY for 10 Days, #10 TAB Prov:STANISLAV ROSAS MD 06/14/24 Reported Medications Lisinopril (Lisinopril) 40 Mg Tab, 1 TAB PO DAILY, #30 TAB 5 Refills 06/11/24 Information Source: Patient Mode of Arrival: Ambulatory Severity: Moderate Timing: Days Duration: Since onset Prehospital treatment: None Past Medical History Past Medical History (Other): unspecified gallbladder-related issue Surgical History: Denies all surgeries [employer] History: No Pertinent [employer] History Family History Family History: Reviewed,noncontributory to illness, No family hx of Cancer, No family hx of DM, No family hx of Heart isatu, No family hx of HTN, No family hx ofKidney isatu, No family hx of Liver isatu, No family hx of Lung isatu, No family hx of Stroke Social History Smoker: Non-Smoker Alcohol: Denies ETOH Use Drugs: Denies Drug Use Lives In: Home All Other Systems: Reviewed and Negative (Comprehensive review of systems are negative unless stated in HPI) Physical Exam General Appearance: Moderate Distress HEENT: Normal ENT Inspection, Pharynx Normal, TMs Normal Neck: Full Range of Motion, Non-Tender, Normal, Normal Inspection Respiratory: Chest Non-Tender, Lungs Clear, No Accessory Muscle Use, No Respiratory Distress, Normal Breath Sounds Cardiovascular: No Edema, No JVD, No Murmur, No Gallop, Normal Peripheral Pulses, Regular Rate/Rhythm Breast Exam: Deferred Gastrointestinal: No Organomegaly, Non Tender, No Pulsatile Mass, Normal Bowel Sounds, Soft Genitalia: Deferred Pelvic: Deferred Rectal: Deferred Extremities: No calf tenderness, Normal capillary refill, Normal inspection, Normal range of motion, Non-tender, No pedal edema Musculoskeletal : Apperance: Normal Neurologic: Alert, nuclear weapons custodian II-XII nml as Tested, No Motor Deficits, Normal Affect, Normal Mood, No Sensory Deficits Cerebellar Function: Normal Reflexes: Normal Skin: Dry, Normal Color, Warm Peripheral Pulses: 3+ Radial (R), 3+ Radial (L) Lymphatic: No Adenopathy Was a procedure done? Was a procedure done?: No Differential Dx Considerations may include: cholelithiasis, cholecystitis, appendicitis, nephrolithiasis, pyelonephritis, cystitis, uremia, musculoskeletal pain, ovarian cysts/torsion, musculoskeletal pain, , viral, among others X-Ray, Labs, Meds, VS Vital Signs Date Time Temp Pulse Resp B/P (MAP) Pulse Ox O2 Delivery O2 Flow Rate FiO2 05/25/25 14:45 98.5 83 18 130/83 (99) 99 98.5 05/25/25 12:47 98.2 96 18 150/86 98 98.2 Lab Test 05/25/25 14:22 05/25/25 13:11 Range/Units Urine Color Light-yellow Yellow Urine Clarity Clear Clear Urine pH 5.0 5.0-9.0 Urine Specific [place] 1.023 1.001-1.035 Urine Protein Negative Negative Urine Ketones Negative Negative Urine Blood 1+ H Negative /uL Urine Nitrite Negative Negative Urine Bilirubin Negative Negative Urine Urobilinogen Normal Negative mg/dL Urine Leukocyte Esterase Negative Negative /uL Urine RBC 1 0 - 4 /hpf Urine Microscopic WBC 4 0-5 /HPF Urine Squamous Epithelial Cells Few <5 /hpf Urine Bacteria Many H None Seen /hpf Urine Mucus Few None Seen Urine Glucose Normal Normal mg/dL White Blood Count 6.2 4.4-10.8 10^3/uL Red Blood Count 5.36 H 4.0-5.20 10^6/uL Hemoglobin 15.6 12.2-16.2 g/dL Hematocrit 46.0 36.0-46.0 % Mean Corpuscular Volume 85.8 80.0-100.0 fL Mean Corpuscular Hemoglobin 29.1 28.0-32.0 pg Mean Corpuscular Hemoglobin Concent 34.0 32.0-36.0 g/dL Red Cell Distribution Width 14.1 11.8-14.3 % Platelet Count 270 140-450 10^3/uL Mean Platelet Volume 9.4 6.9-10.8 fL Neutrophils (%) (Auto) 61.4 37.0-80.0 % Lymphocytes (%) (Auto) 28.0 10.0-50.0 % Monocytes (%) (Auto) 8.1 0.0-12.0 % Eosinophils (%) (Auto) 1.6 0.0-7.0 % Basophils (%) (Auto) 0.9 0.0-2.0 % Neutrophils # (Auto) 3.8 1.6-8.6 10 ^3/uL Lymphocytes # (Auto) 1.7 0.4-5.4 10 ^3/uL Monocytes # (Auto) 0.5 0-1.3 10 ^3/uL Eosinophils # (Auto) 0.1 0-0.8 10 ^3/uL Basophils # (Auto) 0.1 0-0.2 10 ^3/uL Nucleated Red Blood Cells 0.0 % Sodium Level 138 136-145 mmol/L Potassium Level 3.9 3.5-5.1 mmol/L Chloride Level 105 98-107 mmol/L Carbon Dioxide Level 26 20-31 mmol/L Anion Gap 7 5-15 Blood Urea Nitrogen 9 9-23 mg/dL Creatinine 1.03 H 0.550-1.02 mg/dL Glomerular Filtration Rate Calc 73 >90 mL/min BUN/Creatinine Ratio 8.7 L 10.0-20.0 Serum Glucose 114 H 74-106 mg/dL Calcium Level 9.1 8.7-10.4 mg/dL [facility] [id number] [facility] [address] Ph: [phone] DIAGNOSTIC IMAGING Diagnostic Imaging Report : [id number] Signed PATIENT: MEREDITH LOYA ACCT: [id number] UNIT: [id number] : 1990 LOC: ER ROOM / BED: / AGE / SEX: 34 / F ADM STATUS: REG ER SERVICE 1417 ORDERING PHYSICIAN: COLEMAN RIDDLE MD PROCEDURE(s): ABPL - CT AB PEL WO CON-NO ORAL OR IV REASON: enteritis ORDER NUMBER(s): [id number], ACCESSION NUMBER(s): [id number] Exam: CT CT AB PEL WO CON-NO ORAL OR IV History: enteritis Comparison Study: None TECHNIQUE: Multidetector CT of the abdomen and pelvis without IV contrast. Axial, coronal and sagittal multiplanar reformats were obtained from the axial data set by the technologist. Radiation Dose Information: CT Dose: CTDI volume is 20.85 mGy. Dose-length product is 1055.48 mGy*cm FINDINGS: The lung bases are clear. Partially visualized heart is unremarkable. Mild hepatomegaly. Otherwise, liver, spleen, gallbladder, pancreas and adrenal glands unremarkable. Kidneys, ureters and urinary bladder are unremarkable. Uterus is unremarkable. 3 cm right ovarian cyst with left ovarian follicles noted. Stomach is unremarkable. Small bowel loops unremarkable. Appendix is unremarkable. Wall thickening of the distal rectum which is most likely from inadequate distention. Otherwise, large bowel is unremarkable. No evidence of intraperitoneal free air or free fluid. No evidence of aortic aneurysm. Shotty mesenteric lymph nodes. Soft tissues are unremarkable. No evidence of acute osseous abnormalities. IMPRESSION: Mild wall Thickening of proximal small bowel loops which may be from inadequate distention /mild enteritis. Distal rectal wall thickening which is most likely from inadequate distention with proctitis not completely excluded. 3 cm right ovarian cyst. ATED BY: SHAHIDA HAZEL DO DICTATED DATE/TIME: 05/25/25 1501 SIGNED BY: SHAHIDA HAZEL DO SIGNED DATE/TIME: 05/25/25 1501 CC: Patient alert. Complaining of abdominal pain. Vitals stable. Answering questions. WBC within normal limits. Hemoglobin within normal limits. Blood pressure initially was slightly elevated. CT scan of the abdomen reviewed does show enteritis. Was given prescription of Flagyl. Explained to the patient. Was told to follow up with her primary care physician. Was told to come back if there is any problem. Time of 1ST Reevaluation: 14:40 Reevaluation 1ST: Unchanged Patient Education/Counseling: Diagnosis, Treatment Family Education/Counseling: No Family Present SEPSIS Sepsis Screen Date sepsis recognized/suspect: May 25, 2025 Time Sepsis recognized/suspect: 1249 Recent Procedure: No On Antibiotic Therapy: No Respiratory Rate >20: No Heart Rate >90: Yes Temp<36 C (96.8 F) or >38.3 C: No SBP <90 or MAP <65 mmHG: No New Acute Mental Status Change: No Is the patient on CPAP, BIPAP,: No Physician Orders Ct Ab Pel Wo Con-No Oral Or Iv (05/25/25 14:17) Vital Signs Date Time Temp Pulse Resp B/P (MAP) Pulse Ox O2 Delivery O2 Flow Rate FiO2 05/25/25 14:45 98.5 83 18 130/83 (99) 99 98.5 05/25/25 12:47 98.2 96 18 150/86 98 98.2 Laboratory Tests Test 05/25/25 13:11 White Blood Count 6.2 10^3/uL (4.4-10.8) Departure 1 Departure Time of Disposition: 14:49 Impression: Primary Impression: Acute abdominal pain Additional Impressions: HTN (hypertension) Qualified Codes: I10 - Essential (primary) hypertension Enteritis Disposition: 01 HOME / SELF CARE / HOMELESS Condition: Good e-Prescriptions Metronidazole (Flagyl) 500 Mg Tab 1 TAB PO TID for 5 Days, #15 TAB Prov: COLEMAN RIDDLE MD 05/25/25 Discharged With: Self Critical Care Note Critical Care Time?: No Stability Stability form required: No Heart Score Heart Score: Heart Score Response (Comments) Value History N/A 0 EKG N/A 0 Age N/A 0 Risk Factors N/A 0 Troponin N/A 0 Total 0 I personally scribed for COLEMAN RIDDLE MD ([email or web address]) on 05/25/25 at 14:23. Electronically submitted by Bill Nuñez ([email or web address]). I personally scribed for COLEMAN RIDDLE MD ([email or web address]) on 05/25/25 at 15:28. Electronically submitted by Bill Nuñez ([email or web address]). COLEMAN RIDDLE MD May 25, 2025 14:23
--- NOTE | 2025-05-25 15:03 | DVH ---
Exam: CT CT AB PEL WO CON-NO ORAL OR IV History: enteritis Comparison Study: None TECHNIQUE: Multidetector CT of the abdomen and pelvis without IV contrast. Axial, coronal and sagitta l multiplanar reformats were obtained from the axial data set by the technologist. Radiation Dose Information: CT Dose: CTDI volume is 20.85 mGy. Dose-length product is 1055.48 mGy*cm FINDINGS: The lung bases are clear. Partially visualized heart is unremarkable. Mild hepatomegaly. Otherwise, liver, spleen, gallbladder, pancreas and adrenal glands unremarkable. Kidneys, ureters and urinary bladder are unremarkable. Uterus is unremarkable. 3 cm right ovarian cys t with left ovarian follicles noted. Stomach is unremarkable. Small bowel loops unremarkable. Appendix is unremarkable. Wall thickening of the distal rectum which is most likely from inadequate distention. Otherwise, large bowel is unremar kable. No evidence of intraperitoneal free air or free fluid. No evidence of aortic aneurysm. Shotty mesenteric lymph nodes. Soft tissues are unremarkable. No evidence of acute osseous abnormalities. IMPRESSION: Mild wall Thickening of proximal small bowel loops which may be from inadequate distention /mild ente ritis. Distal rectal wall thickening which is most likely from inadequate distention with proctitis not comp letely excluded. 3 cm right ovarian cyst.
[2025-05-25 15:09] LABS: Urine Protein, UAD Negative (Negative)
[2025-05-25] MEDS ORDERED: METR-344 PO (16:44)
[2025-05-25 17:14] VITALS: BP 139/57; PULSE 73; RESP 18; TEMP 98.5
[2025-05-25 17:17] VITALS: O2SAT 100
== END 2025-05-25 16:44 | disposition home or self-care (01) ==
LOC: ER 12:37
DX: K52.9 Noninfective gastroenteritis and colitis, unspecified (principal); R10.31 Right lower quadrant pain; I10 Essential (primary) hypertension; E66.9 Obesity, unspecified; Z79.899 Other long term (current) drug therapy; Z68.39 Body mass index [BMI] 39.0-39.9, adult
CPT/HCPCS: 36415; 74176; 80048; 81001; 85025

== ENCOUNTER 2025-07-19 18:29 | Emergency (ER) | payer MEDICAID ==
[~2025-07-19] VITALS: Ht 162.6 cm; Wt 99.3 kg
[~2025-07-19 18:29] MED LIST changes: +METR-344 PO
[2025-07-19] MEDS: ONDANSETRON HCL 4 MG/2 ML VIAL IV ONE (19:00)
[2025-07-19 19:23] LABS: Hematocrit 44.1 % (36.0-46.0); Hemoglobin 14.7 g/dL (12.2-16.2); Mean Corpuscular Hemoglobin 28.5 pg (28.0-32.0); Mean Corpuscular Volume 85.3 fL (80.0-100.0); Nucleated Red Blood Cells % 0.0 %
[2025-07-19 19:39] LABS: Alanine Aminotransferase 36 U/L (7-40); Albumin 4.5 g/dL (3.2-4.8); Alkaline Phosphatase 71 U/L (46-116); Anion Gap 8 (5-15); BUN/Creatinine Ratio 9.3 (10.0-20.0); Calcium 9.6 mg/dL (8.7-10.4); Carbon Dioxide 27 mmol/L (20-31); Chloride 104 mmol/L (98-107); Glucose 101 mg/dL (74-106); Lipase 30 U/L (12-53); Potassium 4.0 mmol/L (3.5-5.1); Sodium 139 mmol/L (136-145); Total Protein 7.9 g/dL (5.7-8.2)
[2025-07-19 19:40] LABS: Bilirubin, Total 0.4 mg/dL (0.2-1.0)
[2025-07-19 19:43] LABS: Blood Urea Nitrogen 8 mg/dL (9-23)
--- NOTE | 2025-07-19 19:44 | ED.PDOC ---
GI ASSESSMENT HPI Comments 34-year-old female who came to ER for abdominal pain. Patient has been experiencing episodes of right-sided abdominal pain, intermittent for the past 2 months. Seen here before, May, diagnosed with enteritis. Still recurrence of right-sided abdominal pain with episodes of diarrhea prompted patient to come back for checkup. Denies any nausea or vomiting. Denies any possibility of . Denies any abdominal surgeries. Chief Complaint: Abdominal Pain Time Seen by MD: 19:46 Primary Care Provider: WERNER Reviewed Notes: Nurses Notes Allergies: Coded Allergies: Penicillins (Verified Allergy, Unknown, 07/19/25) Home Meds Active Scripts Gabapentin (Once-Daily) (Gabapentin) 300 Mg Tab, 300 MG PO Q6HP PRN, #30 TAB Prov:MARGIE ERVIN MD 07/19/25 Loperamide Hcl (Imodium) 2 Mg Cp, 2 MG PO Q6HP PRN, #30 CAP Prov:MARGIE ERVIN MD 07/19/25 Ondansetron HCl (Ondansetron Hydrochloride) 8 Mg Tab, 8 MG PO Q6HP PRN, #30 TAB Prov:MARGIE ERVIN MD 07/19/25 Metronidazole (Flagyl) 500 Mg Tab, 1 TAB PO TID for 5 Days, #15 TAB Prov:COLEMAN RIDDLE MD 05/25/25 Acetaminophen (Tylenol) 325 Mg Tb, 325 MG PO TID for 5 Days, #15 TAB Prov:STANISLAV ROSAS MD 06/14/24 Ibuprofen Micronized (MOTRIN TABLET) 600 Mg Tb, 600 MG PO TID PRN for 10 Days, #30 TAB *Black box warning-NSAIDS can increase risk of [place] & hypertension, GI irritation, ulceration, bleed, perferation. Do not use post cardiac surgery. Use short duration/lowest effective dose. Prov:STANISLAV ROSAS MD 06/14/24 Clindamycin HCl (Clindamycin Hydrochloride) 300 Mg Cap, 300 MG PO BID for 10 Days, #20 CAP Prov:STANISLAV ROSAS MD 06/14/24 Levofloxacin Hemihydrate (LEVOFLOXACIN) 750 Mg Tab, 1 TAB PO DAILY for 10 Days, #10 TAB Prov:STANISLAV ROSAS MD 06/14/24 Reported Medications Lisinopril (Lisinopril) 40 Mg Tab, 1 TAB PO DAILY, #30 TAB 5 Refills 06/11/24 Information Source: Patient Mode of Arrival: Ambulatory Past Medical History Surgical History: Denies all surgeries PUBLICITY AGENT History: No Pertinent PUBLICITY AGENT History Family History Family History: Reviewed,noncontributory to illness, No family hx of Cancer, No family hx of DM, No family hx of Heart isatu, No family hx of HTN, No family hx ofKidney isatu, No family hx of Liver isatu, No family hx of Lung isatu, No family hx of Stroke Social History Smoker: Non-Smoker Alcohol: Denies ETOH Use Drugs: Denies Drug Use Lives In: Home Constitutional: denies: chills, diaphoresis, fatigue, fever, malaise, sweats, weakness, others EENTM: denies: blurred vision, double vision, ear bleeding, ear discharge, ear drainage, ear pain, ear ringing, eye pain, eye redness, hearing loss, mouth pain, mouth swelling, nasal discharge, nose bleeding, nose congestion, nose pain, photophobia, tearing, throat pain, throat swelling, voice changes, others Respiratory: denies: cough, hemoptysis, orthopnea, SOB at rest, shortness of breath, SOB with excertion, stridor, wheezing, others Cardiovascular: denies: chest pain, dizzy spells, diaphoresis, Dyspnea on exertion, edema, irregular heart beat, left arm pain, lightheadedness, palpitations, PND, syncope, others Gastrointestinal: reports: abdominal pain, diarrhea; denies: abdomen distended, blood streaked bowels, constipated, dysphagia, difficulty swallowing, hematemesis, melena, nausea, poor appetite, poor fluid intake, rectal bleeding, rectal pain, vomiting, others Genitourinary: denies: abnormal vagina bleeding, burning, dyspareunia, dysuria, flank pain, frequency, hematuria, incontinence, pain, , vagina discharge, urgency, others Neurological: denies: dizziness, fainting, headache, left sided numbness, left sided weakness, numbness, paresthesia, pre-existing deficit, right sided numbness, right sided weakness, seizure, speech problems, tingling, tremors, weakness, others Musculoskeletal: denies: back pain, gout, joint pain, joint swelling, muscle pain, muscle stiffness, neck pain, others Integumetry: denies: bruises, change in color, change in hair/nails, dryness, laceration, lesions, lumps, rash, wounds, others Allergic/Immunocompromised: denies: Difficulty Healing, Frequent Infections, Hives, Itching, others Hematologic/Lymphatic: denies: anemia, blood clots, easy bleeding, easy bruising, swollen glands, others Endocrine: denies: excessive hunger, excessive sweating, excessive thirst, excessive urination, flushing, intolerance to cold, intolerance to heat, unexplained weight gain, unexplained weight loss, others Psychiatric: denies: anxiety, bipolar disorder, depression, hopeless, panic disorder, schizophrenia, sleepless, suicidal, others Physical Exam General Appearance: No Apparent Distress, Normal HEENT: Normal ENT Inspection, Pharynx Normal, TMs Normal Neck: Full Range of Motion, Non-Tender, Normal, Normal Inspection Respiratory: Chest Non-Tender, Lungs Clear, No Accessory Muscle Use, No Respiratory Distress, Normal Breath Sounds Cardiovascular: No Edema, No JVD, No Murmur, No Gallop, Normal Peripheral Pulses, Regular Rate/Rhythm Breast Exam: Deferred Gastrointestinal: No Organomegaly, Non Tender, No Pulsatile Mass, Normal Bowel Sounds, Soft Genitalia: Deferred Pelvic: Deferred Rectal: Deferred Extremities: No calf tenderness, Normal capillary refill, Normal inspection, Normal range of motion, Non-tender, No pedal edema Musculoskeletal : Apperance: Normal Neurologic: Alert, chlorinator II-XII nml as Tested, No Motor Deficits, Normal Affect, Normal Mood, No Sensory Deficits Cerebellar Function: Normal Reflexes: Normal Skin: Dry, Normal Color, Warm Lymphatic: No Adenopathy Was a procedure done? Was a procedure done?: No GI differential Dx Differential Diagnosis: Cholecystitis, Constipation, Diverticular disease, Gastritis/PUD, Gastroenteritis, Ovarian cyst/torsion, Pancreatitis, UTI, Urolithiasis, Other (Colitis) X-Ray, Labs, Meds, VS Vital Signs Date Time Temp Pulse Resp B/P (MAP) Pulse Ox O2 Delivery O2 Flow Rate FiO2 07/19/25 21:40 74 12 131/59 07/19/25 21:36 98.6 74 18 131/59 (83) 97 98.6 07/19/25 18:32 98.3 98 20 147/83 99 98.3 Lab Test 07/19/25 20:33 07/19/25 19:15 Range/Units Urine Color Light-yellow Yellow Urine Clarity Clear Clear Urine pH 5.5 5.0-9.0 Urine Specific [place] 1.015 1.001-1.035 Urine Protein Negative Negative Urine Ketones Negative Negative Urine Blood Negative Negative /uL Urine Nitrite Negative Negative Urine Bilirubin Negative Negative Urine Urobilinogen Normal Negative mg/dL Urine Leukocyte Esterase Negative Negative /uL Urine RBC 2 0 - 4 /hpf Urine Microscopic WBC < 1 0-5 /HPF Urine Squamous Epithelial Cells Few <5 /hpf Urine Bacteria None seen None Seen /hpf Urine Mucus Few None Seen Urine Glucose Normal Normal mg/dL Urine Test Negative Negative White Blood Count 7.7 4.4-10.8 10^3/uL Red Blood Count 5.17 4.0-5.20 10^6/uL Hemoglobin 14.7 12.2-16.2 g/dL Hematocrit 44.1 36.0-46.0 % Mean Corpuscular Volume 85.3 80.0-100.0 fL Mean Corpuscular Hemoglobin 28.5 28.0-32.0 pg Mean Corpuscular Hemoglobin Concent 33.4 32.0-36.0 g/dL Red Cell Distribution Width 12.9 11.8-14.3 % Platelet Count 333 140-450 10^3/uL Mean Platelet Volume 9.6 6.9-10.8 fL Neutrophils (%) (Auto) 50.5 37.0-80.0 % Lymphocytes (%) (Auto) 39.2 10.0-50.0 % Monocytes (%) (Auto) 6.8 0.0-12.0 % Eosinophils (%) (Auto) 2.7 0.0-7.0 % Basophils (%) (Auto) 0.8 0.0-2.0 % Neutrophils # (Auto) 3.9 1.6-8.6 10 ^3/uL Lymphocytes # (Auto) 3.0 0.4-5.4 10 ^3/uL Monocytes # (Auto) 0.5 0-1.3 10 ^3/uL Eosinophils # (Auto) 0.2 0-0.8 10 ^3/uL Basophils # (Auto) 0.1 0-0.2 10 ^3/uL Nucleated Red Blood Cells 0.0 % Sodium Level 139 136-145 mmol/L Potassium Level 4.0 3.5-5.1 mmol/L Chloride Level 104 98-107 mmol/L Carbon Dioxide Level 27 20-31 mmol/L Anion Gap 8 5-15 Blood Urea Nitrogen 8 L 9-23 mg/dL Creatinine 0.86 0.550-1.02 mg/dL Glomerular Filtration Rate Calc 90 >90 mL/min BUN/Creatinine Ratio 9.3 L 10.0-20.0 Serum Glucose 101 74-106 mg/dL Calcium Level 9.6 8.7-10.4 mg/dL Total Bilirubin 0.4 0.2-1.0 mg/dL Aspartate Amino Transferase (AST) 26 13-40 U/L Alanine Aminotransferase (ALT) 36 7-40 U/L Alkaline Phosphatase 71 46-116 U/L Total Protein 7.9 5.7-8.2 g/dL Albumin 4.5 3.2-4.8 g/dL Lipase 30 12-53 U/L Current Medications Medications (Trade) Dose Ordered Sig/Pancho Route Start Time Stop Time Status Last Admin Sodium Chloride 1,000 ml @ 1,000 mls/hr Q1H ONCE IVB 07/19/25 19:00 07/19/25 19:59 DC 07/19/25 21:41 Morphine Sulfate 4 mg ONCE ONCE IV 07/19/25 19:00 07/19/25 19:07 DC 07/19/25 21:40 Time of 1ST Reevaluation: 19:42 Reevaluation 1ST: Unchanged Patient Education/Counseling: Diagnosis, Treatment Family Education/Counseling: No Family Present SEPSIS Sepsis Screen Date sepsis recognized/suspect: Jul 19, 2025 Time Sepsis recognized/suspect: 1832 Recent Procedure: No On Antibiotic Therapy: No Respiratory Rate >20: No Heart Rate >90: Yes Temp<36 C (96.8 F) or >38.3 C: No SBP <90 or MAP <65 mmHG: No New Acute Mental Status Change: No Is the patient on CPAP, BIPAP,: No Physician Orders Ct Ab Pel With Iv Con Only (07/19/25 18:52) Vital Signs Date Time Temp Pulse Resp B/P (MAP) Pulse Ox O2 Delivery O2 Flow Rate FiO2 07/19/25 21:40 74 12 131/59 07/19/25 21:36 98.6 74 18 131/59 (83) 97 98.6 07/19/25 18:32 98.3 98 20 147/83 99 98.3 Laboratory Tests Test 07/19/25 19:15 White Blood Count 7.7 10^3/uL (4.4-10.8) Medications Medications Dose Ordered Sig/Pancho Route Start Time Stop Time Status Last Admin Dose Admin Morphine Sulfate 4 mg ONCE ONCE IV 07/19/25 19:00 07/19/25 19:07 DC 07/19/25 21:40 Sodium Chloride 1,000 ml @ 1,000 mls/hr Q1H ONCE IVB 07/19/25 19:00 07/19/25 19:59 DC 07/19/25 21:41 Departure 1 Departure Time of Disposition: 21:40 Impression: Primary Impression: Abdominal pain Additional Impression: Bilateral ovarian cysts Disposition: HOME / SELF CARE / HOMELESS Condition: Stable e-Prescriptions Gabapentin (Once-Daily) (Gabapentin) 300 Mg Tab 300 MG PO Q6HP PRN, #30 TAB Prov: MARGIE ERVIN MD 07/19/25 Loperamide Hcl (Imodium) 2 Mg Cp 2 MG PO Q6HP PRN, #30 CAP Prov: MARGIE ERVIN MD 07/19/25 Ondansetron HCl (Ondansetron Hydrochloride) 8 Mg Tab 8 MG PO Q6HP PRN, #30 TAB Prov: MARGIE ERVIN MD 07/19/25 Discharged With: Self Critical Care Note Critical Care Time?: No Stability Stability form required: No Heart Score Heart Score: Heart Score Response (Comments) Value History N/A 0 EKG N/A 0 Age N/A 0 Risk Factors N/A 0 Troponin N/A 0 Total 0 I personally scribed for MARGIE ERVIN MD ([email or web address]) on 07/19/25 at 19:44. Electronically submitted by Kali Gomez ([email or web address]). I personally scribed for MARGIE ERVIN MD ([email or web address]) on 07/19/25 at 19:46. Electronically submitted by Kali Gomez ([email or web address]). MARGIE ERVIN MD Jul 19, 2025 19:44
[2025-07-19 20:49] LABS: Urine Protein, UAD Negative (Negative)
[2025-07-19] MEDS: IOHEXOL 300 MG/ML 100ML BOTTLE IJ ONE (21:29)
[2025-07-19 21:36] VITALS: TEMP 98.6; O2SAT 97
[2025-07-19 21:40] VITALS: BP 131/59; PULSE 74; RESP 12
[2025-07-19] MEDS: MORPHINE SULFATE 4 MG/ML SYR/VIAL IV ONE (21:40)
[2025-07-19] MEDS: SODIUM CHLORIDE 0.9% 1,000 ML IVB ONE (21:41)
--- NOTE | 2025-07-19 21:42 | DVH ---
EXAM: CT CT AB PEL WITH IV CON ONLY History: RLQ pain, diarrhea Comparison Study: None TECHNIQUE: Multidetector CT of the abdomen was performed from lung bases to pubic symphysis. Imaging was performed without IV contrast. Axial, coronal and sagittal multiplanar reformats were obtained from the axial data set by the technologist. Radiation Dose Information: CT Dose: CTDI volume is 20.48 mGy. Dose-length product is 1240.69 mGy*cm FINDINGS: The lung bases are clear. Partially visualized heart is unremarkable. Subcentimeter hypodense hepatic lesion that is too small to characterize. Mild hepatomegaly. Otherwise, liver, spleen, gallbladder, pancreas and adrenal glands are unremarkable. Kidneys, ureters and urinary bladder are unremarkable. Uterus is unremarkable. 3.5 x 3.7 x 4.5 cm right ovarian cyst. 2.9 cm left ovarian cyst. Stomach is unremarkable. Small bowel loops are unremarkable. Appendix is unremarkable. Moderate amount of fecal material within the ascending colon. Otherwise, Small amount of fecal material within the remainder of the colon. No evidence of intraperitoneal free air . Trace amount of free fluid within the cul-de-sac which is most likely physiologic. No evidence of aortic aneurysm or dissection. No significant lymphadenopathy. Soft tissues are unremarkable. No evidence of acute osseous abnormalities. IMPRESSION: No evidence of Acute abdominopelvic abnormalities. 3.5 x 3.7 x 4.5 cm right ovarian cyst with 2.9 cm left ovarian cyst.
[2025-07-19] MEDS ORDERED: ONDA-180 PO (22:12)
[2025-07-19] MEDS ORDERED: LOPE2CAP16 PO (22:12)
[2025-07-19] MEDS ORDERED: GABA300T4 PO (22:13)
== END 2025-07-19 23:18 | disposition home or self-care (01) ==
LOC: ER 18:29
DX: N83.202 Unspecified ovarian cyst, left side (principal); N83.201 Unspecified ovarian cyst, right side; R10.9 Unspecified abdominal pain; Z79.899 Other long term (current) drug therapy; Z88.0 Allergy status to penicillin
CPT/HCPCS: 36415; 74177; 80053; 81001; 81025; 83690; 85025; 96361; 96374; 99285; J2270; J7030; Q9967